=== PATIENT | female | born 1940 | race Hispanic/Latino ===

== ENCOUNTER → 2019-03-12 | Outpatient (CLI) | payer MEDICARE | END | disposition home or self-care (01) | LOC: RAH 11:15 | PROVIDERS: ATTEND Urology | DX: N32.89 Other specified disorders of bladder (principal); K57.90 Diverticulosis of intestine, part unspecified, without perforation or abscess without bleeding; D25.9 Leiomyoma of uterus, unspecified | CPT/HCPCS: 74176 ==